=== PATIENT | female | born 1980 | race Caucasian/White ===

== ENCOUNTER 2019-09-08 14:10 | Emergency (ER) | payer OTHER ==
[~2019-09-08] VITALS: Ht 157.5 cm; Wt 83.5 kg
[2019-09-08 14:22] VITALS: BP_SYST 138
[2019-09-08] MEDS ORDERED: KETOROLAC TROMETHAMINE 60 MG/2 ML VIAL IM ONE (15:30)
[2019-09-08] MEDS ORDERED: ONDANSETRON 4 MG ODT TAB PO ONE (15:30)
[2019-09-08 16:24] VITALS: BP_SYST 128
== END 2019-09-08 16:24 | disposition home or self-care (01) ==
LOC: SED 14:10
DX: R51 Headache (principal)
CPT/HCPCS: 70450; 96372; 99284; J1885; Q0162

== ENCOUNTER 2019-11-08 13:59 | Inpatient (IN) | payer OTHER ==
[~2019-11-08] VITALS: Ht 157.5 cm; Wt 81.2 kg
[2019-11-08 14:03] VITALS: BP_SYST 125
[2019-11-08] MEDS ORDERED: METOPROLOL TARTRATE 5 MG/5 ML VIAL IVP ONE (14:30)
[2019-11-08] MEDS ORDERED: NACL 0.9% 1,000 ML IV ONE (14:30)
[2019-11-08] MEDS ORDERED: LORazepam 2 MG/ML VIAL IVP ONE ×3 (14:30→22:45)
[2019-11-08 15:15] LABS: BASOPHILS % (AUTO) 0.5 % (0.0-2.0); EOSINOPHILS # (AUTO) 0.1 K/uL (0.0-0.4); EOSINOPHILS % (AUTO) 1.1 % (0.0-4.0); HEMATOCRIT 43.2 % (36-48); HEMOGLOBIN 15.1 g/dL (12.0-16.0); LYMPHOCYTES # (AUTO) 1.7 K/uL (1.0-5.5); LYMPHOCYTES % (AUTO) 21.6 % (20.5-51.5); MEAN CORPUSCULAR HEMOGLOBIN 33 pg (27-31); MEAN CORPUSCULAR HGB CONC 35 % (32-36); MEAN CORPUSCULAR VOLUME 95 fL (79.0-98.0); MONOCYTES # (AUTO) 0.4 K/uL (0.0-1.0); MONOCYTES % (AUTO) 5.1 % (1.7-9.3); NEUTROPHILS # (AUTO) 5.7 K/uL (1.8-7.7); NEUTROPHILS % (AUTO) 71.7 % (40.0-70.0); PLATELET COUNT (AUTO) 367 K/uL (130-430); RED BLOOD CELL COUNT(AUTO) 4.52 MIL/uL (4.2-6.2); WHITE BLOOD COUNT (AUTO) 7.9 K/uL (4.8-10.8)
[2019-11-08 15:21] LABS: CALCIUM 9.5 mg/dL (8.4-11.0); CREATININE 0.72 mg/dL (0.55-1.30); POTASSIUM 3.7 mmol/L (3.5-5.1)
[2019-11-08 15:27] LABS: TOTAL BILIRUBIN 0.5 mg/dL (0.0-1.0)
[2019-11-08] MEDS ORDERED: ONDANSETRON HCL 4 MG/2 ML VIAL IVP ONE (16:15)
[2019-11-08 17:06] LABS: BARBITURATE, URINE NEGATIVE (NEG <=200); BENZODIAZEPINE, URINE POSITIVE (NEG <=150); CANNABINOID, URINE NEGATIVE (NEG <=50); COCAINE, URINE NEGATIVE (NEG <=150); METHAMPHETAMINES SCREEN,URINE NEGATIVE (NEG <=500); OPIATE, URINE NEGATIVE (NEG <=100); PHENCYCLIDINE SCREEN,URINE NEGATIVE (NEG <=25); UR TRICYCLIC ANTIDEPRESSANTS NEGATIVE (NEG <=300); URINE AMPHETAMINE NEGATIVE (NEG <=500); URINE METHADONE NEGATIVE (NEG <=200); URINE OXYCODONE SCREEN NEGATIVE (NEG <=100); URINE PROPOXYPHENE SCREEN NEGATIVE (NEG <=300)
[2019-11-08] MEDS ORDERED: METO50TA7 PO (17:26)
[2019-11-08] MEDS ORDERED: LORA-259 PO (17:26)
[2019-11-08] MEDS ORDERED: LORazepam 2 MG/ML VIAL ONE (18:38)
[2019-11-08] MEDS ORDERED: METOPROLOL SUCCINATE 50 MG TAB.SR.24H (TOPROL XL) PO SCH (21:00)
[2019-11-08] MEDS: LORazepam 1 MG TABLET PO PRN (21:23)
[2019-11-08 22:00] VITALS: BP_SYST 112
[2019-11-09 08:00] VITALS: BP_SYST 104
[2019-11-09] MEDS ORDERED: METO25TA3 PO (09:35)
[2019-11-09] MEDS: METOPROLOL SUCCINATE 25 MG TAB.SR.24H (TOPROL XL) PO SCH ×2 (09:52→21:50)
[2019-11-09 12:00] VITALS: BP_SYST 109
[2019-11-09] MEDS: LORazepam 1 MG TABLET PO PRN (14:32)
[2019-11-09] MEDS: ONDANSETRON HCL 4 MG/2 ML VIAL IVP PRN (14:33)
[2019-11-09 16:00] VITALS: BP_SYST 111
[2019-11-09 20:38] VITALS: BP_SYST 105
[2019-11-10] MEDS: ONDANSETRON HCL 4 MG/2 ML VIAL IVP PRN ×2 (00:21→11:50)
[2019-11-10] MEDS: LORazepam 1 MG TABLET PO PRN ×3 (00:21→22:49)
[2019-11-10 01:39] VITALS: BP_SYST 110
[2019-11-10 04:00] VITALS: BP_SYST 93
[2019-11-10 08:00] VITALS: BP_SYST 114
[2019-11-10] MEDS: METOPROLOL SUCCINATE 25 MG TAB.SR.24H (TOPROL XL) PO SCH (08:20)
[2019-11-10] MEDS ORDERED: MAGNESIUM CITRATE 300 ML ORAL SOLUTION PO ONE (10:30)
[2019-11-10 12:00] VITALS: BP_SYST 107
[2019-11-10] MEDS ORDERED: METOPROLOL SUCCINATE 25 MG TAB.SR.24H (TOPROL XL) PO ONE (12:30)
[2019-11-10] MEDS ORDERED: LORazepam 1 MG TABLET PO PRN (14:15)
[2019-11-10] MEDS ORDERED: ONDANSETRON HCL 4 MG/2 ML VIAL IVP ONE (14:15)
[2019-11-10 16:00] VITALS: BP_SYST 121
[2019-11-10 20:05] VITALS: BP_SYST 119
[2019-11-10] MEDS: PROPRANOLOL HCL 10 MG TABLET (INDERAL) PO SCH (20:19)
[2019-11-10] MEDS ORDERED: METOPROLOL SUCCINATE 50 MG TAB.SR.24H (TOPROL XL) PO SCH (21:00)
[2019-11-11 00:37] VITALS: BP_SYST 105
[2019-11-11] MEDS: ONDANSETRON HCL 4 MG/2 ML VIAL IVP PRN (06:43)
[2019-11-11 08:00] VITALS: BP_SYST 101
[2019-11-11] MEDS ORDERED: PROP10TA10 PO (10:03)
[2019-11-11] MEDS: PROPRANOLOL HCL 10 MG TABLET (INDERAL) PO SCH (10:22)
[2019-11-11 12:00] VITALS: BP_SYST 120
[2019-11-11 13:11] VITALS: BP_SYST 120
== END 2019-11-11 13:30 | disposition home or self-care (01) | DRG 310 ==
LOC: SED 13:59 → STU 16:25
PROVIDERS: ADMIT Internal Medicine Hospice and Palliative Medicine; ATTEND Internal Medicine Hospice and Palliative Medicine
DX: I47.1 Supraventricular tachycardia (principal); R07.89 Other chest pain; I47.9 Paroxysmal tachycardia, unspecified; F41.9 Anxiety disorder, unspecified; I10 Essential (primary) hypertension; Z82.49 Family history of ischemic heart disease and other diseases of the circulatory system; Z79.899 Other long term (current) drug therapy
CPT/HCPCS: 36415; 71045; 80053; 80307; 82550-TC; 84443-TC; 84484; 85025; 93005; 93306; 96374; 96375; 96376; 99285; G0378; J2060; J2405; J3490; J7030